=== PATIENT | female | born 1960 | race Caucasian/White ===

== ENCOUNTER 2023-07-12 05:54 | Inpatient (IN) ==
[2023-07-12] MEDS ORDERED: DUONEB NEB ONE ×2 (06:06)
[2023-07-12] MEDS ORDERED: SOLU-MEDROL 125 MG IVP ONE (06:10)
--- NOTE | 2023-07-12 06:11 | ED.PDOC ---
General <VIDA IRBY MD - Last Filed: 07/12/23 06:59> ED Provider: Dr. VIDA IRBY MD Chief Complaint: Shortness of Air Stated Complaint: I can't breathe 62-year-old female presents the ER with shortness of breath. Patient states it got really bad in the last 4 hours. Feels a tightness across her chest. Does not use home oxygen or nebulizers. Has not had fevers. Has had a cough that is productive of thick mucus. No lower extremity swelling. No recent hospitalization or travel. No calf pain. Has a history of COPD. Patient is a smoker. Time Seen by Provider: 07/12/23 06:06 Mode of Arrival: Walk-In Information Source: Patient Primary Care Provider: INOCENCIA ORTIZ MD Nursing and Triage Documentation Reviewed and Agree: Yes Respiratory Complaint Exam <VIDA IRBY MD - Last Filed: 07/12/23 06:59> Shortness of Air Complaint/Exam Onset/Duration: Past couple of days, worse in the last 4 hours Symptoms Are: Still present Timing: Constant Initial Severity: Moderate Current Severity: Severe Character: Reports Dyspnea at rest Aggravating: Reports None Alleviating: Reports None Associated Signs and Symptoms: Reports Cough, Wheezing, Chest pain with cough and Labored breathing History of Healthcare-Acquired Pneumonia: No Pulmonary Embolism Risk Factors: Reports None Cardiac Risk Factors: Reports Smoking and Hypertension Pseudomonas Risk Factors: Reports None Home Oxygen Use: No Recent Stress Test: No Recent Echo/LV Function: No Respiratory Distress: Moderate Stridor Present: No Tracheal Deviation: No Subcutaneous Emphysema: No Accessory Muscle Use: Yes Diminished Breath Sounds: Yes Prolonged Expiratory Phase: Yes Unable to Speak Full Sentences: No Fatigue: Yes Leg Swelling: No Eric's Sign Present: No Grunting Respirations: No Kussmaul Respirations: No Differential Diagnoses: Asthma, CHF, Pulmonary Edema, COPD Exacerbation, Pneumonia, SARS, Bronchitis, Bronchiolitis, RSV and URI Review of Systems <VIDA IRBY MD - Last Filed: 07/12/23 06:59> Review Of Systems Constitutional: Denies Chills Respiratory: Reports Cough, Shortness of Breath and Wheezing Cardiac: Reports Chest pain All Other Systems: Reviewed and Negative PFSH <VIDA IRBY MD - Last Filed: 07/12/23 06:59> Medical History Dyslipidemia E78.5 - Hyperlipidemia, unspecified (ICD-10) COPD (chronic obstructive pulmonary disease) J44.9 - Chronic obstructive pulmonary disease, unspecified (ICD-10) Current smoker F17.200 - Nicotine dependence, unspecified, uncomplicated (ICD-10) HTN, goal below 130/80 I10 - Essential (primary) hypertension (ICD-10) Adhesive capsulitis of left shoulder M75.02 - Adhesive capsulitis of left shoulder (ICD-10) Family History Unknown Cancer Unknown CHF (congestive heart failure) Social History Smoking and tobacco status: Current some day smoker Tobacco: How many years used: 45 Quit status: not considering quitting Alcohol intake: current Alcohol intake frequency: holidays/special occasions only Substance use type: does not use Household members: spouse Marital status: W / Lives independently: Yes Number of children: 1 Current occupational status: employed Current gender identity: female Seatbelt use: always Water heater temperature set < 120 degrees: Yes Working smoke detector in home: Yes Fire extinguisher in home: Yes Carbon monoxide detector in home: Yes Surgical History History of cholecystectomy Z90.49 - Acquired absence of other specified parts of digestive tract (ICD- 10) History of hysterectomy Z90.710 - Acquired absence of both cervix and uterus (ICD-10) Female Reproductive History Menstrual Hx Hysterectomy: Yes Physical Exam <VIDA IRBY MD - Last Filed: 07/12/23 06:59> Physical Exam Ill-appearing: Mild Pain Distress: None Eyes: Reports EOMI ENT: Reports Oropharynx normal Neck: Supple Respiratory: Reports Airway patent, Wheezes and Other (Tripoding) Cardiovascular: Reports RRR GI/: Reports Soft and Nontender Musculoskeletal: Reports No calf tenderness Skin: Reports Warm and Dry Neurological: Reports Cranial nerves intact, Alert and Oriented Psychiatric: Reports Affect appropriate <CHOLO FERNANDO MD - Last Filed: 07/12/23 10:04> Physical Exam Appearance: Reports Ill-appearing, No pain distress and Well-nourished Interpretation <VIDA IRBY MD - Last Filed: 07/12/23 06:59> EKG Interpretation EKG Interpretation By: ED Physician Time of EKG #1: 06:27 Rate: Normal Rhythm: Sinus Ectopy: None [place]: NL ST Segment: Normal Re-Evaluation <VIDA IRBY MD - Last Filed: 07/12/23 06:59> Re-Evaluation Additional Comments: Patient reports that she has been having allergy symptoms for 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 However tonight at work she became nauseated and vomited. After that she has been having a hard time breathing. Denies getting choked up on her emesis. States that while she is a smoker and has a diagnosis of COPD, she does not have inhalers prescribed to her. States that she has never had breathing issues like this before. Reports mild improvement after the nebulized treatment but her sats remain 84% on room air. She is still labored. Critical Care Note <VIDA IRBY MD - Last Filed: 07/12/23 06:59> Critical Care Note Total Critical Care Time (mins): 40 Course <VIDA IRBY MD - Last Filed: 07/12/23 06:59> Course 07/12/23 06:18 07/12/23 06:18 Orders, Labs, Meds: Lab Review 07/12/23 07/12/23 07/12/23 06:10 06:18 06:40 WBC 9.00 RBC 4.02 L Hgb 12.9 Hct 39.1 MCV 97.3 MCH 32.1 H MCHC 33.0 RDW Coeff of Damon 12.9 Plt Count 374 Immature Gran % (Auto) 0.3 Neut % (Auto) 67.4 Lymph % (Auto) 26.0 [place] % (Auto) 5.6 Eos % (Auto) 0.6 Baso % (Auto) 0.1 Neut # (Auto) 6.1 Lymph # (Auto) 2.3 [place] # (Auto) 0.5 Eos # (Auto) 0.1 Baso # (Auto) 0.0 Immature Gran # (Auto) 0.0 Puncture Site Rbrach Base Excess 8.0 H O2 Saturation 94.7 ABG pH 7.50 H ABG pCO2 40.0 ABG pO2 67.0 L ABG HCO3 31.2 H ABG Total CO2 32.4 H Nicho Test Pos Hemoglobin 1.2 Oxyhemoglobin 89.5 L Carboxyhemoglobin 5.6 H Total Hemoglobin 13.2 O2 Delivery Device Cannula Oxygen Liter Flow 2.00 Sodium 139.5 Potassium 3.75 Chloride 104.0 Carbon Dioxide 28.0 Anion Gap 11.25 BUN 27.3 H Creatinine 0.93 Estimated GFR (MDRD) 61.00 BUN/Creatinine Ratio 29.35 Glucose 139.5 H Calcium 9.38 Magnesium 2.19 Total Bilirubin 0.38 AST 25.9 ALT 12.8 Alkaline Phosphatase 78.7 Troponin I < 0.012 NT-Pro-B Natriuret Pep 235 Total Protein 8.02 Albumin 4.46 Globulin 3.56 Albumin/Globulin Ratio 1.25 Procalcitonin < 0.05 D-Dimer 1502.67 H SARS CoV-2 RNA Rapid AJAY Negative Orders Category Date Time Status ABG DRAW REQUEST Stat CARDIO 07/12/23 06:06 Completed BIPAP Routine CARDIO 07/12/23 06:44 Ordered EKG-(ED ONLY) Stat CARDIO 07/12/23 06:06 Completed NEBULIZER TREATMENT Routine CARDIO 07/12/23 06:58 Completed ED IV/MEDIPORT/POWERPORT .ONCE EMERGENCY 07/12/23 06:06 Active ABG COOX Stat LAB 07/12/23 06:10 Completed CBC W/ AUTO DIFF Stat LAB 07/12/23 06:18 Completed COMPREHENSIVE METABOLIC PANEL Stat LAB 07/12/23 06:18 Completed D-DIMER Stat LAB 07/12/23 06:18 Completed ED PROBNP [NT-PROBNP(ED)] Stat LAB 07/12/23 06:18 Completed MAGNESIUM Stat LAB 07/12/23 06:18 Completed PROCALCITONIN Stat LAB 07/12/23 06:18 Completed SARS COV-2 RNA RAPID AJAY Stat LAB 07/12/23 06:40 Completed TROPONIN I Stat LAB 07/12/23 06:18 Completed 0.9 % Sodium Chloride [Saline Flush] Meds 07/12/23 06:06 Active 1 syr IVF PRN PRN Albuterol Sulfate 0.083% Neb [Albuterol 0.083% Neb] Meds 07/12/23 06:58 Discontinued 5 mg NEB ONCE ONE Diphenhydramine Inj [Benadryl] Meds 07/12/23 06:47 Discontinued 50 mg .ROUTE .STK-MED ONE Diphenhydramine Inj [Benadryl] Meds 07/12/23 06:51 Discontinued 50 mg IVP ONCE STA Epinephrine Amp [Epinephrine 1 mg/ml Amp] Meds 07/12/23 06:51 Discontinued 0.3 mg IM ONCE STA Epinephrine Amp [Epinephrine 1 mg/ml Amp] Meds 07/12/23 06:47 Discontinued 1 mg .ROUTE .STK-MED ONE Famotidine Inj [Pepcid] Meds 07/12/23 06:49 Discontinued 20 mg .ROUTE .STK-MED ONE Famotidine Inj [Pepcid] Meds 07/12/23 06:51 Discontinued 20 mg IVP ONCE ONE Ipratropium/Albuterol Neb [Duoneb] Meds 07/12/23 06:06 Discontinued 3 ml NEB ONCE ONE Ipratropium/Albuterol Neb [Duoneb] Meds 07/12/23 06:06 Discontinued 3 ml NEB ONCE ONE Methylprednisolone Sod Succ/Pf [Solu-Medrol 125 mg] Meds 07/12/23 06:10 Discontinued 125 mg IVP ONCE ONE Sodium Chloride 0.9% [Sodium Chloride] 500 ml Meds 07/12/23 06:59 Discontinued IV BOLUS CHEST, 1V AP ONLY Stat RADS 07/12/23 06:06 Completed Medications Generic Name Dose Route Start Last Admin Trade Name Freq PRN Reason Stop Dose Admin Sodium Chloride 1 syr 07/12/23 06:06 0.9% Sodium Chloride 10 Ml Disp.Syrin IVF PRN PRN To flush IV Discontinued Medications Generic Name Dose Route Start Last Admin Trade Name Freq PRN Reason Stop Dose Admin Albuterol Sulfate 5 mg 07/12/23 06:58 07/12/23 07:02 Albuterol Sulfate 0.083% Vial.Neb [facility] 07/12/23 06:59 5 mg ONCE ONE Administration Albuterol/Ipratropium 3 ml 07/12/23 06:06 07/12/23 06:05 Ipratropium/Albuterol Vial.Neb NEB 07/12/23 06:07 3 ml ONCE ONE Administration Albuterol/Ipratropium 3 ml 07/12/23 06:06 07/12/23 06:18 Ipratropium/Albuterol Vial.Neb [facility] 07/12/23 06:07 3 ml ONCE ONE Administration Diphenhydramine HCl 50 mg 07/12/23 06:51 07/12/23 06:55 Diphenhydramine Inj 50 Mg/Ml Vial IVP 07/12/23 06:52 Not Given ONCE STA Epinephrine HCl 0.3 mg 07/12/23 06:51 07/12/23 06:53 Epinephrine 1 Mg/1 Ml Amp IM 07/12/23 06:52 0.3 mg ONCE STA Administration Famotidine 20 mg 07/12/23 06:51 07/12/23 06:54 Famotidine Inj 20 Mg/2 Ml Vial IVP 07/12/23 06:52 Not Given ONCE ONE Sodium Chloride 500 mls @ 500 mls/hr 07/12/23 06:59 07/12/23 08:16 Sodium Chloride IV 07/12/23 07:58 Infused BOLUS STA Infusion Methylprednisolone Sodium Succinate 125 mg 07/12/23 06:10 07/12/23 06:29 Methylprednisolone Sod Succ/Pf 125 Mg/2 Ml Vial IVP 07/12/23 06:11 125 mg ONCE ONE Administration 6:43 AM Patient reports feeling very itchy, starting to turn red. States that her tongue is no longer numb and does not feel swollen. Suspect allergic reaction. Patient states she believes she has had breathing treatment before so unclear what she is reacting to. 0.3 mg of epi, 50 mg of Benadryl, 20 mg of Pepcid given. 6:53 AM Patient reassessed and states that she does feel like she is able to take deeper breaths. Is settling down more than 10 minutes ago. 99% on nonrebreather right now. Will have respiratory apply BiPAP. Labs are returned. Cardiac biomarkers are unremarkable. Chest x-ray interpreted by me independent of radiology review does not show any acute pneumothorax, fluid collection, consolidation, cardiomegaly. 6:54 AM Uncertain if this is allergic reaction mediated or viral. Patient could have had a viral illness and then was reacting to the breathing treatment. We will continue to monitor. Anticipate the need for admission to the hospital. Vital Signs: Temp Pulse Resp BP Pulse Ox 07/12/23 07:07 96 07/12/23 06:00 98.0 F 90 24 H 150/74 H 87 L <CHOLO FERNANDO MD - Last Filed: 07/12/23 10:04> Course Orders, Labs, Meds: Lab Review 07/12/23 07/12/23 07/12/23 06:10 06:18 06:40 WBC 9.00 RBC 4.02 L Hgb 12.9 Hct 39.1 MCV 97.3 MCH 32.1 H MCHC 33.0 RDW Coeff of Damon 12.9 Plt Count 374 Immature Gran % (Auto) 0.3 Neut % (Auto) 67.4 Lymph % (Auto) 26.0 [place] % (Auto) 5.6 Eos % (Auto) 0.6 Baso % (Auto) 0.1 Neut # (Auto) 6.1 Lymph # (Auto) 2.3 [place] # (Auto) 0.5 Eos # (Auto) 0.1 Baso # (Auto) 0.0 Immature Gran # (Auto) 0.0 Puncture Site Rbrach Base Excess 8.0 H O2 Saturation 94.7 ABG pH 7.50 H ABG pCO2 40.0 ABG pO2 67.0 L ABG HCO3 31.2 H ABG Total CO2 32.4 H Nicho Test Pos Hemoglobin 1.2 Oxyhemoglobin 89.5 L Carboxyhemoglobin 5.6 H Total Hemoglobin 13.2 O2 Delivery Device Cannula Oxygen Liter Flow 2.00 Sodium 139.5 Potassium 3.75 Chloride 104.0 Carbon Dioxide 28.0 Anion Gap 11.25 BUN 27.3 H Creatinine 0.93 Estimated GFR (MDRD) 61.00 BUN/Creatinine Ratio 29.35 Glucose 139.5 H Calcium 9.38 Magnesium 2.19 Total Bilirubin 0.38 AST 25.9 ALT 12.8 Alkaline Phosphatase 78.7 Troponin I < 0.012 NT-Pro-B Natriuret Pep 235 Total Protein 8.02 Albumin 4.46 Globulin 3.56 Albumin/Globulin Ratio 1.25 Procalcitonin < 0.05 D-Dimer 1502.67 H SARS CoV-2 RNA Rapid AJAY Negative Orders Category Date Time Status ABG DRAW REQUEST Stat CARDIO 07/12/23 06:06 Completed BIPAP Routine CARDIO 07/12/23 06:44 Ordered EKG-(ED ONLY) Stat CARDIO 07/12/23 06:06 Completed NEBULIZER TREATMENT Routine CARDIO 07/12/23 06:58 Completed ED IV/MEDIPORT/POWERPORT .ONCE EMERGENCY 07/12/23 06:06 Active ABG COOX Stat LAB 07/12/23 06:10 Completed CBC W/ AUTO DIFF Stat LAB 07/12/23 06:18 Completed COMPREHENSIVE METABOLIC PANEL Stat LAB 07/12/23 06:18 Completed D-DIMER Stat LAB 07/12/23 06:18 Completed ED PROBNP [NT-PROBNP(ED)] Stat LAB 07/12/23 06:18 Completed MAGNESIUM Stat LAB 07/12/23 06:18 Completed PROCALCITONIN Stat LAB 07/12/23 06:18 Completed SARS COV-2 RNA RAPID AJAY Stat LAB 07/12/23 06:40 Completed TROPONIN I Stat LAB 07/12/23 06:18 Completed 0.9 % Sodium Chloride [Saline Flush] Meds 07/12/23 06:06 Active 1 syr IVF PRN PRN Albuterol Sulfate 0.083% Neb [Albuterol 0.083% Neb] Meds 07/12/23 06:58 Discontinued 5 mg NEB ONCE ONE Diphenhydramine Inj [Benadryl] Meds 07/12/23 06:47 Discontinued 50 mg .ROUTE .STK-MED ONE Diphenhydramine Inj [Benadryl] Meds 07/12/23 06:51 Discontinued 50 mg IVP ONCE STA Epinephrine Amp [Epinephrine 1 mg/ml Amp] Meds 07/12/23 06:51 Discontinued 0.3 mg IM ONCE STA Epinephrine Amp [Epinephrine 1 mg/ml Amp] Meds 07/12/23 06:47 Discontinued 1 mg .ROUTE .STK-MED ONE Famotidine Inj [Pepcid] Meds 07/12/23 06:49 Discontinued 20 mg .ROUTE .STK-MED ONE Famotidine Inj [Pepcid] Meds 07/12/23 06:51 Discontinued 20 mg IVP ONCE ONE Ipratropium/Albuterol Neb [Duoneb] Meds 07/12/23 06:06 Discontinued 3 ml NEB ONCE ONE Ipratropium/Albuterol Neb [Duoneb] Meds 07/12/23 06:06 Discontinued 3 ml NEB ONCE ONE Methylprednisolone Sod Succ/Pf [Solu-Medrol 125 mg] Meds 07/12/23 06:10 Discontinued 125 mg IVP ONCE ONE Sodium Chloride 0.9% [Sodium Chloride] 500 ml Meds 07/12/23 06:59 Discontinued IV BOLUS CHEST, 1V AP ONLY Stat RADS 07/12/23 06:06 Completed Medications Generic Name Dose Route Start Last Admin Trade Name Freq PRN Reason Stop Dose Admin Sodium Chloride 1 syr 07/12/23 06:06 0.9% Sodium Chloride 10 Ml Disp.Syrin IVF PRN PRN To flush IV Discontinued Medications Generic Name Dose Route Start Last Admin Trade Name [place] PRN Reason Stop Dose Admin Albuterol Sulfate 5 mg 07/12/23 06:58 07/12/23 07:02 Albuterol Sulfate 0.083% Vial.[facility] 07/12/23 06:59 5 mg ONCE ONE Administration Albuterol/Ipratropium 3 ml 07/12/23 06:06 07/12/23 06:05 Ipratropium/Albuterol Vial.[facility] 07/12/23 06:07 3 ml ONCE ONE Administration Albuterol/Ipratropium 3 ml 07/12/23 06:06 07/12/23 06:18 Ipratropium/Albuterol Vial.[facility] 07/12/23 06:07 3 ml ONCE ONE Administration Diphenhydramine HCl 50 mg 07/12/23 06:51 07/12/23 06:55 Diphenhydramine Inj 50 Mg/Ml Vial IVP 07/12/23 06:52 Not Given ONCE STA Epinephrine HCl 0.3 mg 07/12/23 06:51 07/12/23 06:53 Epinephrine 1 Mg/1 Ml Amp IM 07/12/23 06:52 0.3 mg ONCE STA Administration Famotidine 20 mg 07/12/23 06:51 07/12/23 06:54 Famotidine Inj 20 Mg/2 Ml Vial IVP 07/12/23 06:52 Not Given ONCE ONE Sodium Chloride 500 mls @ 500 mls/hr 07/12/23 06:59 07/12/23 08:16 Sodium Chloride IV 07/12/23 07:58 Infused BOLUS STA Infusion Methylprednisolone Sodium Succinate 125 mg 07/12/23 06:10 07/12/23 06:29 Methylprednisolone Sod Succ/Pf 125 Mg/2 Ml Vial IVP 07/12/23 06:11 125 mg ONCE ONE Administration Vital Signs: Temp Pulse Resp BP Pulse Ox 07/12/23 07:07 96 07/12/23 06:00 98.0 F 90 24 H 150/74 H 87 L Time is 0836 hr. D-Dimer is positive. CTA of chest ordered. Discussed with patient and she's ok with staying here. Resting fairly comfortably time 1002 hr. Cj called back and all info given to him. He agreed to admit to hospitalist but will see her also. Lanette called and admit to OBS Discharge Plan Discharge Patient Disposition: PLACED OBSERVATION Discharge Problem: Acute respiratory failure Did you review [place] for ALL controlled substances?: Not Applicable ED Provider: CHOLO FERNANDO Condition: Fair <VIDA IRBY MD - Last Filed: 07/12/23 06:59> Physician Progress Note: [] <CHOLO FERNANDO MD - Last Filed: 07/12/23 10:04> Physician Progress Note: Patient seen and labs reviewed. Discussed transfer of care from Vida Irby earlier. Paged her attending and left a message on his cell phone. Hospitalist did accept as per RN from call to hospitalist from Vida Irby. []
[2023-07-12 06:24] LABS: BASOPHILS % (AUTO) 0.1 % (0.0-3.0); EOSINOPHILS # (AUTO) 0.1 K/ul (0.0-0.7); EOSINOPHILS % (AUTO) 0.6 % (0.0-7.0); HEMATOCRIT 39.1 % (37.0-47.0); HEMOGLOBIN 12.9 g/dl (12.0-16.0); IMMATURE GRANULOCYTE % (AUTO) 0.3 % (0.0-5.0); LYMPHOCYTES # (AUTO) 2.3 K/uL (0.60-3.4); MEAN CORPUSCULAR HEMOGLOBIN 32.1 pg (27.0-31.0); MEAN CORPUSCULAR VOLUME 97.3 fl (81.0-99.0); MONOCYTES # (AUTO) 0.5 K/uL (0.4-2.0); MONOCYTES % (AUTO) 5.6 (0-10); NEUTROPHILS # (AUTO) 6.1 K/ul (2.0-6.9); NEUTROPHILS % (AUTO) 67.4 % (42.2-75.2); PLATELET COUNT 374 10^3/uL (140-440); RDW COEFFICIENT OF VARIATION 12.9 % (11.6-14.8); RED BLOOD COUNT 4.02 10^6/ul (4.20-5.40)
[2023-07-12 06:26] LABS: ABG O2 HGB 89.5 % (95-100); COHb 5.6 (0.5-1.5); HCO3 31.2 (21-28); MetHb 1.2 (0-1.5); TCO2 32.4 (19-24); sO2 94.7 % (94-98); tHb 13.2 g/dl (11.7-17.4)
[2023-07-12 06:37] LABS: ALANINE AMINOTRANSFERASE 12.8 U/L (0-35); ALBUMIN 4.46 g/dL (3.5-5.0); ALKALINE PHOSPHATASE 78.7 U/L (53-141); ASPARTATE AMINO TRANSFERASE 25.9 U/L (14-36); BILIRUBIN,TOTAL 0.38 mg/dL (0.2-1.3); BLOOD UREA NITROGEN 27.3 mg/dL (7-17); CALCIUM 9.38 mg/dL (8.4-10.2); CREATININE 0.93 mg/dL (0.60-1.30); GLUCOSE 139.5 mg/dL (74-106); POTASSIUM 3.75 mmol/L (3.5-5.1); SODIUM 139.5 mmol/L (134.5-145); TOTAL PROTEIN 8.02 g/dL (6.3-8.2)
[2023-07-12] MEDS ORDERED: BENADRYL ONE (06:47)
[2023-07-12] MEDS ORDERED: EPINEPHRINE 1 MG/ML AMP ONE (06:47)
[2023-07-12 06:49] LABS: TROPONIN I < 0.012 ng/ml (0.0000-0.120)
[2023-07-12] MEDS ORDERED: PEPCID ONE (06:49)
[2023-07-12] MEDS ORDERED: EPINEPHRINE 1 MG/ML AMP IM STA (06:51)
[2023-07-12] MEDS ORDERED: PEPCID IVP ONE (06:51)
[2023-07-12] MEDS ORDERED: BENADRYL IVP STA (06:51)
--- NOTE | 2023-07-12 06:52 | DI ---
EXAM: CHEST RADIOGRAPH TECHNIQUE: Single frontal chest radiograph. HISTORY: Shortness of breath. COMPARISON: 07/19/2016 FINDINGS: EKG leads and oxygen tubing project over the chest. No pulmonary infiltrate is identified. No pleural effusion or pneumothorax is seen. Borderline cardiomegaly. No acute displaced rib fractures are identified. IMPRESSION: 1. No acute findings in the chest.
[2023-07-12 06:58] LABS: SARS COV-2 RNA RAPID NAAT NEGATIVE (NEGATIVE)
[2023-07-12] MEDS ORDERED: ALBUTEROL 0.083% NEB NEB ONE (06:58)
[2023-07-12] MEDS ORDERED: SODIUM CHLORIDE 500 ML IV STA (06:59)
--- NOTE | 2023-07-12 09:49 | CT ---
EXAM: CTA CHEST FOR PE HISTORY: Acute dyspnea COMPARISON: None TECHNIQUE: CTA of the chest was performed from the lung apices to the upper abdomen after 100 ml of Omnipaque IV contrast was administered using PE protocol. 3-D imaging was also provided. FINDINGS: There is no filling defect in the pulmonary arteries to the level of the subsegmental pulm onary arteries. The heart is normal without signs of ventricular strain. There is mild calcific ath erosclerotic disease. There is no pericardial fluid. There are nonenlarged mediastinal and hilar ly mph nodes. Thyroid is normal. There is no pneumothorax or effusion. There is calcified granuloma in the superior segment of the ri ght lower lobe. There is a right apical nodule measuring 0.5 cm. The airways are patent. Limited views of the soft tissues in the upper abdomen are normal. Gallbladder is been resected. Th ere is a right renal cyst present. The osseous structures demonstrate degenerative disease. IMPRESSION: 1. No acute cardiopulmonary process or consolidation. 2. Pleural-based 0.5 cm nodule in the posterior right lung apex. Follow-up CT in 6 months. 3. Cholecystectomy and right renal cyst. All CT scans are performed using dose optimization techniques as appropriate to the performed exam an d include at least one of the following: Automated exposure control, adjustment of the mA and/or kV according t o size, and the use of iterative reconstruction technique.
[2023-07-12 11:10] VITALS: BMI 30.9
--- NOTE | 2023-07-12 11:22 | PCM ---
Date of Service Date Seen by Provider: 07/12/23 Time Seen by Provider: 11:45 Admit Day/Time Admission Date: 07/12/23 Admission Time: 11:40 Reason for Admission Chief Complaint: COPD EXACERBATION Hospital Provider Hospital Provider: LESLEY EDUARDO PA-C, [facility] [place] Primary Care Physician Primary Care Physician: INOCENCIA CORONA MD History of Present Illness History of Present Illness: Patient is a 62 year old female with pmhx of hypertension who presented to ER with sob. 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 Then she felt significant SOB to where she couldn't walk a few steps. She states she has had URI symptoms for last couple weeks. No formal diagnosis of COPD. Doesn't use inhalers at home. She is a long time smoker. In ER she was found to be hypoxic 84-87%. She was given duonebs. She became very red, tongue went numb, then became itchy. Her breathing became labored. She was placed on bipap to help with her work of breathing. They tried just an albuterol neb but she had the same reaction. She was given epi, solumedrol, pepcid, and benadryl. She is now off bipap, only on 2L, and breathing is nonlabored/much improved. Case Discussed With Case Discussed With: Patient's case was discussed with the ER Physicians, Dr. Bains and Dr. Mcgovern. [facility] Medical History Dyslipidemia E78.5 - Hyperlipidemia, unspecified (ICD-10) COPD (chronic obstructive pulmonary disease) J44.9 - Chronic obstructive pulmonary disease, unspecified (ICD-10) Current smoker F17.200 - Nicotine dependence, unspecified, uncomplicated (ICD-10) HTN, goal below 130/80 I10 - Essential (primary) hypertension (ICD-10) Adhesive capsulitis of left shoulder M75.02 - Adhesive capsulitis of left shoulder (ICD-10) Surgical History History of cholecystectomy Z90.49 - Acquired absence of other specified parts of digestive tract (ICD- 10) History of hysterectomy Z90.710 - Acquired absence of both cervix and uterus (ICD-10) Family History Unknown Cancer Unknown CHF (congestive heart failure) Mother Cancer Mother Heart disease FATHER Heart disease Diabetes BROTHER Diabetes AMI (acute myocardial infarction) CVA (cerebral vascular accident) BROTHER Hypertension Hx of CABG SISTER Hypertension Social History Smoking and tobacco status: Current some day smoker Tobacco: How many years used: 45 Quit status: not considering quitting Alcohol intake: current Alcohol intake frequency: holidays/special occasions only Substance use type: does not use Household members: spouse Marital status: W / Lives independently: Yes Number of children: 1 Current occupational status: employed Current gender identity: female Seatbelt use: always Water heater temperature set < 120 degrees: Yes Working smoke detector in home: Yes Fire extinguisher in home: Yes Carbon monoxide detector in home: Yes Allergies Allergies Allergy/AdvReac Type Severity Reaction Status Date / Time No Known Allergies Allergy Verified 07/12/23 06:26 Current Medications Home Medications amlodipine 5 mg tablet (Norvasc) 5 mg PO BID #180 tabs 01/13/23 [Rx Confirmed 07/12/23 Last Taken 07/11/23 08:00 10 mg] cholecalciferol (vitamin D3) 25 mcg (1,000 unit) capsule 25 mcg PO QDAY 01/13/23 [History Confirmed 07/12/23 Last Taken 07/11/23 08:00 25 mcg] escitalopram oxalate 20 mg tablet 20 mg PO QDAY #90 tabs 01/13/23 [Rx Confirmed 07/12/23 Last Taken 07/11/23 08:00 20 mg] magnesium oxide 500 mg tablet 500 mg PO QDAY #90 tabs 01/13/23 [Rx Confirmed 07/12/23 Last Taken 06/27/23 11:00 500 mg] metoprolol tartrate 50 mg tablet 50 mg PO QDAY #90 tabs 02/08/23 [Rx Confirmed 07/12/23 Last Taken 07/11/23 08:00 50 mg] Home Acetaminophen (Acetaminophen 325 Mg Tablet) 650 mg PO Q4H PRN PRN Reason: Mild Pain Amlodipine Besylate (Amlodipine Besylate 5 Mg Tablet) 5 mg PO BID PATTI Last Admin: 07/12/23 13:05 Dose: 5 mg Diphenhydramine HCl (Diphenhydramine Hcl 25 Mg Capsule) 25 mg PO Q6H PRN PRN Reason: Allergy Symptoms Enoxaparin Sodium (Enoxaparin Sodium 40 Mg/0.4 Ml Syr) 40 mg SUBCUT DAILY [facility] Escitalopram Oxalate (Escitalopram Oxalate 10 Mg Tablet) 20 mg PO DAILY [facility] Last Admin: 07/12/23 13:05 Dose: 20 mg Famotidine (Famotidine Inj 20 Mg/2 Ml Vial) 20 mg IVP Q12HR [facility] Doxycycline Hyclate 100 mg/ (Sodium Chloride) 100 mls @ 50 mls/hr IV Q12HR [facility] Stop: 07/15/23 11:59 Last Admin: 07/12/23 12:53 Dose: 50 mls/hr Methylprednisolone Sodium Succinate (Methylprednisolone Sod Succ/Pf 40 Mg/Ml Vial) 40 mg IVP Q8HR [facility] Last Admin: 07/12/23 12:56 Dose: 40 mg Metoprolol Tartrate (Metoprolol Tartrate 50 Mg Tablet) 50 mg PO DAILY [facility] Last Admin: 07/12/23 13:06 Dose: 50 mg Sodium Chloride (0.9% Sodium Chloride 10 Ml Disp.Syrin) 1 syr IVF PRN PRN PRN Reason: To flush IV Last Admin: 07/12/23 12:57 Dose: 1 syr Discontinued Medications Albuterol Sulfate (Albuterol Sulfate 0.083% Vial.Neb) 5 mg NEB ONCE ONE Stop: 07/12/23 06:59 Last Admin: 07/12/23 07:02 Dose: 5 mg Albuterol/Ipratropium (Ipratropium/Albuterol Vial.Neb) 3 ml NEB ONCE ONE Stop: 07/12/23 06:07 Last Admin: 07/12/23 06:05 Dose: 3 ml Albuterol/Ipratropium (Ipratropium/Albuterol Vial.Neb) 3 ml NEB ONCE ONE Stop: 07/12/23 06:07 Last Admin: 07/12/23 06:18 Dose: 3 ml Diphenhydramine HCl (Diphenhydramine Inj 50 Mg/Ml Vial) 50 mg IVP ONCE STA Stop: 07/12/23 06:52 Last Admin: 07/12/23 06:55 Dose: Not Given Epinephrine HCl (Epinephrine 1 Mg/1 Ml Amp) 0.3 mg IM ONCE STA Stop: 07/12/23 06:52 Last Admin: 07/12/23 06:53 Dose: 0.3 mg Famotidine (Famotidine Inj 20 Mg/2 Ml Vial) 20 mg IVP ONCE ONE Stop: 07/12/23 06:52 Last Admin: 07/12/23 06:54 Dose: Not Given Sodium Chloride (Sodium Chloride) 500 mls @ 500 mls/hr IV BOLUS STA Stop: 07/12/23 07:58 Last Infusion: 07/12/23 08:16 Dose: Infused Methylprednisolone Sodium Succinate (Methylprednisolone Sod Succ/Pf 125 Mg/2 Ml Vial) 125 mg IVP ONCE ONE Stop: 07/12/23 06:11 Last Admin: 07/12/23 06:29 Dose: 125 mg Review of Systems Constitutional: Denies Fever, Fatigue or Weakness Head: Reports Normocephalic and Atraumatic Cardiovascular: Denies Chest pain or Chest Pressure Respiratory: Reports Cough, Shortness of air and Wheeze Gastrointestinal: Reports Nausea, Vomiting and Diarrhea; Denies Abdominal pain Dermatologic: Denies Rashes Neurological: Reports Numbness (of tongue, resolved ); Denies Weakness Physical examination Most Recent Vital Signs: Most Recent Vital Signs Temperature 98.4 F 07/12/23 10:40 Temperature Source Oral 07/12/23 10:40 Temperature Source Oral 07/12/23 06:00 Pulse Rate 75 07/12/23 10:40 Respiratory Rate 16 07/12/23 10:40 Blood Pressure 150/74 H 07/12/23 06:00 Blood Pressure Left Arm 148/87 07/12/23 10:40 Blood Pressure Position Sitting 07/12/23 10:40 O2 Sat by Pulse Oximetry 94 L 07/12/23 10:40 Oxygen Delivery Method Nasal Cannula 07/12/23 10:40 Oxygen Flow Rate 2 07/12/23 10:40 Fraction of Inspired Oxygen (FIO2) 30 07/12/23 07:07 Height 5 ft 7 in 07/12/23 10:40 Weight 197 lb 8 oz 07/12/23 10:40 Appearance: Positive Well-appearing, Well-nourished, No Apparent Distress and Alert and Oriented x3 Skin: Positive [place], Warm and Good Turgor; Negative Rashes HEENT: Positive Normocephalic and Atraumatic Neck: Positive Supple and Midline Trachea Chest/Lungs: Positive Wheezes (+mild wheezing bilaterally, improved ) Heart: Positive RRR GI/: Positive Soft, Nontender, Bowel Sounds Normal and No Distention Extremities: Negative Edema Neurological: Positive Cranial Nerves Intact, Alert, Oriented and Muscle Strength 5/5 in Upper and Lower Extremities Bilaterally Psychiatric: Positive Oriented x4, Appropriate Mood and Appropriate Affect Labs This Visit Labs This Visit: Labs This Visit 07/12/23 07/12/23 07/12/23 06:10 06:18 06:40 WBC 9.00 RBC 4.02 L Hgb 12.9 Hct 39.1 MCV 97.3 MCH 32.1 H MCHC 33.0 RDW Coeff of Damon 12.9 Plt Count 374 Immature Gran % (Auto) 0.3 Neut % (Auto) 67.4 Lymph % (Auto) 26.0 [place] % (Auto) 5.6 Eos % (Auto) 0.6 Baso % (Auto) 0.1 Neut # (Auto) 6.1 Lymph # (Auto) 2.3 [place] # (Auto) 0.5 Eos # (Auto) 0.1 Baso # (Auto) 0.0 Immature Gran # (Auto) 0.0 Puncture Site Rbrach Base Excess 8.0 H O2 Saturation 94.7 ABG pH 7.50 H ABG pCO2 40.0 ABG pO2 67.0 L ABG HCO3 31.2 H ABG Total CO2 32.4 H Nicho Test Pos Hemoglobin 1.2 Oxyhemoglobin 89.5 L Carboxyhemoglobin 5.6 H Total Hemoglobin 13.2 O2 Delivery Device Cannula Oxygen Liter Flow 2.00 Sodium 139.5 Potassium 3.75 Chloride 104.0 Carbon Dioxide 28.0 Anion Gap 11.25 BUN 27.3 H Creatinine 0.93 Estimated GFR (MDRD) 61.00 BUN/Creatinine Ratio 29.35 Glucose 139.5 H Calcium 9.38 Magnesium 2.19 Total Bilirubin 0.38 AST 25.9 ALT 12.8 Alkaline Phosphatase 78.7 Troponin I < 0.012 NT-Pro-B Natriuret Pep 235 Total Protein 8.02 Albumin 4.46 Globulin 3.56 Albumin/Globulin Ratio 1.25 Procalcitonin < 0.05 D-Dimer 1502.67 H SARS CoV-2 RNA Rapid AJAY Negative Imaging Imaging: EXAM: CHEST RADIOGRAPH TECHNIQUE: Single frontal chest radiograph. HISTORY: Shortness of breath. COMPARISON: 07/19/2016 FINDINGS: EKG leads and oxygen tubing project over the chest. No pulmonary infiltrate is identified. No pleural effusion or pneumothorax is seen. Borderline cardiomegaly. No acute displaced rib fractures are identified. IMPRESSION: 1. No acute findings in the chest. EXAM: CTA CHEST FOR PE HISTORY: Acute dyspnea COMPARISON: None TECHNIQUE: CTA of the chest was performed from the lung apices to the upper abdomen after 100 ml of Omnipaque IV contrast was administered using PE protocol. 3-D imaging was also provided. FINDINGS: There is no filling defect in the pulmonary arteries to the level of the subsegmental pulmonary arteries. The heart is normal without signs of ventricular strain. There is mild calcific atherosclerotic disease. There is no pericardial fluid. There are nonenlarged mediastinal and hilar lymph nodes. Thyroid is normal. There is no pneumothorax or effusion. There is calcified granuloma in the superior segment of the right lower lobe. There is a right apical nodule measuring 0.5 cm. The airways are patent. Limited views of the soft tissues in the upper abdomen are normal. Gallbladder is been resected. There is a right renal cyst present. The osseous structures demonstrate degenerative disease. IMPRESSION: 1. No acute cardiopulmonary process or consolidation. 2. Pleural-based 0.5 cm nodule in the posterior right lung apex. Follow-up CT in 6 months. 3. Cholecystectomy and right renal cyst. Review Statement Review Statement: I have independently reviewed and interpreted the labs/EKGs/imaging that were ordered by the ER provider. I have reviewed all outside records that are available currently in our EMR including imaging/notes/labs from previous visits. Plan Plan: 1. Acute hypoxic respiratory failure - Improved. Off of bipap. Wean O2 when able. Solumedrol, pepcid, doxycycline. Will avoid nebs for now since she seems to have had a reaction in ER. Benadryl prn ordered. 2. Acute COPD exacerbation - Plan as above. Consider outpatient PFTs for formal diagnosis. Chronic smoker. 3. Hypertension - Chronic, stable DVT Prophylaxis: Lovenox Time Spent: Greater than 80 minutes spent with patient, 50% of the time spent with this patient was devoted to counseling and coordination of care. Advanced Care Planning: FULL CODE minutes spent discussing advance care planning. Smoking Cessation: 3 minutes spent discussing smoking cessation. Admit to: Inpatient Discussed Plan of Care with Dr. Radha Corona. Medications Medication Orders: Medications Ordered Category Date Time Status 0.9 % Sodium Chloride [Saline Flush] Meds 07/12/23 06:06 Active 1 syr IVF PRN PRN
[2023-07-12] MEDS ORDERED: BENADRYL PO PRN (11:54)
[2023-07-12] MEDS ORDERED: TYLENOL PO PRN (11:54)
[2023-07-12] MEDS: DOXY-100 100 MG in SODIUM CHLORIDE 100ML 100 ML IV SCH ×2 (12:53→20:26)
[2023-07-12] MEDS: SOLU-MEDROL 40 MG IVP SCH ×2 (12:56→20:25)
[2023-07-12] MEDS: NORVASC PO SCH ×2 (13:05→20:25)
[2023-07-12] MEDS: LEXAPRO PO SCH (13:05)
[2023-07-12] MEDS: LOPRESSOR PO SCH (13:06)
[2023-07-12] MEDS: PEPCID IVP SCH (20:25)
[2023-07-13 05:20] LABS: BASOPHILS % (AUTO) 0.1 % (0.0-3.0); HEMOGLOBIN 11.2 g/dl (12.0-16.0); IMMATURE GRANULOCYTE # (AUTO) 0.2 (0.0-1.0); IMMATURE GRANULOCYTE % (AUTO) 1.1 % (0.0-5.0); LYMPHOCYTES # (AUTO) 0.7 K/uL (0.60-3.4); LYMPHOCYTES % (AUTO) 5.4 (10.0-50.0); MEAN CORPUSCULAR HEMOGLOBIN 32.3 pg (27.0-31.0); MEAN CORPUSCULAR HGB CONC 32.9 (31.8-35.4); MONOCYTES # (AUTO) 0.2 K/uL (0.4-2.0); MONOCYTES % (AUTO) 1.4 (0-10); NEUTROPHILS # (AUTO) 12.5 K/ul (2.0-6.9); PLATELET COUNT 290 10^3/uL (140-440); RED BLOOD COUNT 3.47 10^6/ul (4.20-5.40); WHITE BLOOD COUNT 13.54 K/ul (4.6-10.2)
[2023-07-13 05:35] LABS: ALANINE AMINOTRANSFERASE 11.3 U/L (0-35); ALBUMIN 3.83 g/dL (3.5-5.0); ALKALINE PHOSPHATASE 59.4 U/L (53-141); ASPARTATE AMINO TRANSFERASE 19.7 U/L (14-36); BILIRUBIN,TOTAL 0.21 mg/dL (0.2-1.3); BLOOD UREA NITROGEN 19.6 mg/dL (7-17); CALCIUM 9.21 mg/dL (8.4-10.2); CARBON DIOXIDE 27.5 mmol/L (22-30.0); CHLORIDE 107.6 mmol/L (98-107); CREATININE 0.72 mg/dL (0.60-1.30); GLUCOSE 133.5 mg/dL (74-106); POTASSIUM 3.98 mmol/L (3.5-5.1); SODIUM 138.1 mmol/L (134.5-145); TOTAL PROTEIN 6.83 g/dL (6.3-8.2)
[2023-07-13] MEDS: SOLU-MEDROL 40 MG IVP SCH ×3 (05:37→20:16)
[2023-07-13] MEDS: PEPCID IVP SCH ×2 (08:56→20:16)
[2023-07-13] MEDS: NORVASC PO SCH ×2 (08:56→20:12)
[2023-07-13] MEDS: LEXAPRO PO SCH (08:56)
[2023-07-13] MEDS: LOPRESSOR PO SCH (08:56)
[2023-07-13] MEDS: DOXY-100 100 MG in SODIUM CHLORIDE 100ML 100 ML IV SCH ×2 (08:56→20:13)
[2023-07-13] MEDS: LOVENOX SUBCUT SCH (08:57)
--- NOTE | 2023-07-13 09:14 | PCM.PROG ---
Date/Time Seen Date Seen by Provider: 07/13/23 Time Seen by Provider: 08:30 Provider [facility] Chief Complaint Chief Complaint: COPD EXACERBATION Subjective Subjective: Patient feeling better. On 2L through the night. Has a cough and still has some wheezing. Has not had any other symptoms of tongue numbness, itching, redness, etc. Objective Appearance: Positive Well-appearing, Well-nourished, No Apparent Distress and Alert and Oriented x3 Chest/Lungs: Positive Symmetrical With Equal Breath Sounds, Rhonci and Wheezes Heart: Positive RRR GI/: Positive Soft, Nontender and Bowel Sounds Normal Neurological: Positive Cranial Nerves Intact, Alert, Oriented and Muscle Strength 5/5 in Upper and Lower Extremities Bilaterally Vital Signs Vital Signs: Vital Signs: Last 24 Hours 07/12/23 10:25 07/12/23 10:40 07/12/23 10:40 Temperature 98.4 F Temperature Source Oral Pulse Rate 75 Respiratory Rate 16 16 Blood Pressure Blood Pressure Mean Blood Pressure Left Arm 148/87 Blood Pressure Location Blood Pressure Position Sitting O2 Sat by Pulse Oximetry 94 L Oxygen Delivery Method Nasal Cannula Nasal Cannula Oxygen Flow Rate 2 2 Height 5 ft 7 in Weight 197 lb 8 oz Telemetry Type Remote Telemetry Telemetry Monitoring Started Telemetry Heart Rate 70 Telemetry SPO2 94 EKG NH Interval 0.19 EKG QRS Interval 0.09 Telemetry Strip Reading NSR 07/12/23 11:00 07/12/23 12:28 07/12/23 13:00 Temperature Temperature Source Pulse Rate Respiratory Rate Blood Pressure Blood Pressure Mean Blood Pressure Left Arm Blood Pressure Location Blood Pressure Position O2 Sat by Pulse Oximetry Oxygen Delivery Method Nasal Cannula Nasal Cannula Oxygen Flow Rate Height Weight Telemetry Type Remote Telemetry Telemetry Monitoring Continues Telemetry Heart Rate 68 Telemetry SPO2 93 EKG NH Interval 0.20 EKG QRS Interval 0.08 Telemetry Strip Reading NSR 07/12/23 14:00 07/12/23 14:00 07/12/23 15:21 Temperature 97.7 F Temperature Source Oral Pulse Rate 65 Respiratory Rate 14 Blood Pressure 132/72 Blood Pressure Mean 92 Blood Pressure Left Arm Blood Pressure Location Left Arm Blood Pressure Position Supine O2 Sat by Pulse Oximetry 95 87 L 94 L Oxygen Delivery Method Nasal Cannula Nasal Cannula Nasal Cannula Oxygen Flow Rate 1 1 2 Height Weight Telemetry Type Telemetry Monitoring Telemetry Heart Rate Telemetry SPO2 EKG NH Interval EKG QRS Interval Telemetry Strip Reading 07/12/23 18:00 07/12/23 19:00 07/12/23 19:44 Temperature 97.4 F L Temperature Source Temporal Artery Scan Pulse Rate 58 L Respiratory Rate 20 16 Blood Pressure 134/77 Blood Pressure Mean 96 Blood Pressure Left Arm Blood Pressure Location Left Arm Blood Pressure Position Supine O2 Sat by Pulse Oximetry 95 Oxygen Delivery Method Nasal Cannula Nasal Cannula Oxygen Flow Rate 2 2 Height Weight Telemetry Type Remote Telemetry Telemetry Monitoring Continues Telemetry Heart Rate 55 L Telemetry SPO2 94 EKG NH Interval 0.18 EKG QRS Interval 0.06 Telemetry Strip Reading SB 07/12/23 20:00 07/12/23 20:56 07/13/23 01:00 Temperature 97.3 F L Temperature Source Temporal Artery Scan Pulse Rate 56 L Respiratory Rate 18 Blood Pressure 131/81 Blood Pressure Mean 97 Blood Pressure Left Arm Blood Pressure Location Right Arm Blood Pressure Position Supine O2 Sat by Pulse Oximetry 95 97 Oxygen Delivery Method Nasal Cannula Nasal Cannula Oxygen Flow Rate 2 2 Height Weight Telemetry Type Remote Telemetry Telemetry Monitoring Continues Telemetry Heart Rate 73 Telemetry SPO2 EKG NH Interval 0.17 EKG QRS Interval 0.05 L Telemetry Strip Reading SR 07/13/23 04:53 07/13/23 05:36 07/13/23 07:00 Temperature 98.0 F Temperature Source Oral Pulse Rate 54 L Respiratory Rate 18 Blood Pressure 141/72 H Blood Pressure Mean 95 Blood Pressure Left Arm Blood Pressure Location Right Arm Blood Pressure Position Supine O2 Sat by Pulse Oximetry 93 L 95 Oxygen Delivery Method Nasal Cannula Nasal Cannula Oxygen Flow Rate 2 Height Weight Telemetry Type Remote Telemetry Telemetry Monitoring Continues Telemetry Heart Rate 53 L Telemetry SPO2 EKG NH Interval 0.16 EKG QRS Interval 0.07 Telemetry Strip Reading SB Lab Results Lab Results: Lab Results: Last 24 Hours 07/13/23 05:07 WBC 13.54 H RBC 3.47 L Hgb 11.2 L Hct 34.0 L MCV 98.0 MCH 32.3 H MCHC 32.9 RDW Coeff of Damon 13.0 Plt Count 290 Immature Gran % (Auto) 1.1 Neut % (Auto) 92.0 H Lymph % (Auto) 5.4 L [place] % (Auto) 1.4 Eos % (Auto) 0.0 Baso % (Auto) 0.1 Neut # (Auto) 12.5 H Lymph # (Auto) 0.7 [place] # (Auto) 0.2 L Eos # (Auto) 0.0 Baso # (Auto) 0.0 Immature Gran # (Auto) 0.2 Sodium 138.1 Potassium 3.98 Chloride 107.6 H Carbon Dioxide 27.5 Anion Gap 6.98 BUN 19.6 H Creatinine 0.72 Estimated GFR (MDRD) 82.00 BUN/Creatinine Ratio 27.22 Glucose 133.5 H Calcium 9.21 Total Bilirubin 0.21 AST 19.7 ALT 11.3 Alkaline Phosphatase 59.4 Total Protein 6.83 Albumin 3.83 Globulin 3.00 Albumin/Globulin Ratio 1.27 Additional Comments Additional Comments: I have independently reviewed and interpreted the labs/EKGs/imaging ordered during this hospital stay. I have reviewed outside records that are available in our EMR that pertain to medical stay including imaging/notes/labs from previous visits. Active Medications Active Medications: Medications Generic Name Dose Route Start Last Admin Trade Name Freq PRN Reason Stop Dose Admin Acetaminophen 650 mg 07/12/23 11:54 Acetaminophen 325 Mg Tablet PO Q4H PRN Mild Pain Amlodipine Besylate 5 mg 07/12/23 12:30 07/13/23 08:56 Amlodipine Besylate 5 Mg Tablet PO 5 mg BID PATTI Administration Diphenhydramine HCl 25 mg 07/12/23 11:54 Diphenhydramine Hcl 25 Mg Capsule PO Q6H PRN Allergy Symptoms Enoxaparin Sodium 40 mg 07/13/23 09:00 07/13/23 08:57 Enoxaparin Sodium 40 Mg/0.4 Ml Syr SUBCUT 40 mg DAILY PATTI Administration Escitalopram Oxalate 20 mg 07/12/23 12:30 07/13/23 08:56 Escitalopram Oxalate 10 Mg Tablet PO 20 mg DAILY PATTI Administration Famotidine 20 mg 07/12/23 21:00 07/13/23 08:56 Famotidine Inj 20 Mg/2 Ml Vial IVP 20 mg Q12HR PATTI Administration Doxycycline Hyclate 100 mg/ 100 mls @ 50 mls/hr 07/12/23 12:00 07/13/23 08:56 Sodium Chloride IV 07/13/23 11:00 50 mls/hr Q12HR PATTI Administration Doxycycline Hyclate 100 mg/ 100 mls @ 50 mls/hr 11/01/23 21:00 Sodium Chloride IV 07/16/23 20:59 Q12HR PATTI Methylprednisolone Sodium Succinate 40 mg 07/12/23 13:00 07/13/23 05:37 Methylprednisolone Sod Succ/Pf 40 Mg/Ml Vial IVP 40 mg Q8HR PATTI Administration Metoprolol Tartrate 50 mg 07/12/23 12:30 07/13/23 08:56 Metoprolol Tartrate 50 Mg Tablet PO 50 mg DAILY PATTI Administration Sodium Chloride 1 syr 07/12/23 21:00 07/13/23 05:37 0.9% Sodium Chloride 10 Ml Disp.Syrin IVF 1 syr Q8HR PATTI Administration Plan Plan: 1. Acute hypoxic respiratory failure - Improved. Off of bipap. Wean O2 when able. Solumedrol, pepcid, doxycycline. Will avoid nebs for now since she seems to have had a reaction in ER. Benadryl prn ordered. 2. Acute COPD exacerbation - Plan as above. Consider outpatient PFTs for formal diagnosis. Chronic smoker. Repeat CXR today since she could've aspirated while vomiting yesterday. Imaging yesterday neg for pna. 3. Hypertension - Chronic, stable DVT: Lovenox Dispo: Wean O2 today. Ambulate. Likely dc tomorrow. Review Statement Review Statement: I have personally discussed and reviewed the patient's visit/currently labs/imaging/decision making with Dr. Corona, my supervising attending. Greater that 50 minutes spent with patient, 50% of the time spent with this david ent was devoted to counseling and coordination of care.
--- NOTE | 2023-07-13 13:47 | DI ---
EXAM: CHEST RADIOGRAPH TECHNIQUE: Two views. Frontal and lateral. HISTORY: Possible aspiration COMPARISON: 07/12/2023 FINDINGS: The lungs are clear. The heart size is normal. Osseous structures are unremarkable IMPRESSION: 1. Normal Exam.
[2023-07-14] MEDS: SOLU-MEDROL 40 MG IVP SCH (05:21)
[2023-07-14 05:24] LABS: BASOPHILS % (AUTO) 0.1 % (0.0-3.0); HEMATOCRIT 35.8 % (37.0-47.0); HEMOGLOBIN 11.6 g/dl (12.0-16.0); IMMATURE GRANULOCYTE # (AUTO) 0.1 (0.0-1.0); IMMATURE GRANULOCYTE % (AUTO) 0.9 % (0.0-5.0); LYMPHOCYTES # (AUTO) 0.7 K/uL (0.60-3.4); LYMPHOCYTES % (AUTO) 4.7 (10.0-50.0); MEAN CORPUSCULAR HEMOGLOBIN 31.8 pg (27.0-31.0); MEAN CORPUSCULAR HGB CONC 32.4 (31.8-35.4); MEAN CORPUSCULAR VOLUME 98.1 fl (81.0-99.0); MONOCYTES # (AUTO) 0.2 K/uL (0.4-2.0); MONOCYTES % (AUTO) 1.4 (0-10); NEUTROPHILS # (AUTO) 13.6 K/ul (2.0-6.9); NEUTROPHILS % (AUTO) 92.9 % (42.2-75.2); PLATELET COUNT 333 10^3/uL (140-440); RDW COEFFICIENT OF VARIATION 13.2 % (11.6-14.8); RED BLOOD COUNT 3.65 10^6/ul (4.20-5.40); WHITE BLOOD COUNT 14.67 K/ul (4.6-10.2)
[2023-07-14 05:46] LABS: ALANINE AMINOTRANSFERASE 19.1 U/L (0-35); ALBUMIN 4.05 g/dL (3.5-5.0); ALKALINE PHOSPHATASE 60.2 U/L (53-141); ASPARTATE AMINO TRANSFERASE 25.8 U/L (14-36); BILIRUBIN,TOTAL 0.25 mg/dL (0.2-1.3); BLOOD UREA NITROGEN 20.4 mg/dL (7-17); CALCIUM 9.41 mg/dL (8.4-10.2); CARBON DIOXIDE 28.3 mmol/L (22-30.0); CHLORIDE 107.2 mmol/L (98-107); CREATININE 0.8 mg/dL (0.60-1.30); GLUCOSE 148.3 mg/dL (74-106); POTASSIUM 3.93 mmol/L (3.5-5.1); SODIUM 139.2 mmol/L (134.5-145); TOTAL PROTEIN 7.15 g/dL (6.3-8.2)
[2023-07-14] MEDS: PEPCID IVP SCH (08:19)
[2023-07-14] MEDS: NORVASC PO SCH (08:19)
[2023-07-14] MEDS: DOXY-100 100 MG in SODIUM CHLORIDE 100ML 100 ML IV SCH (08:19)
[2023-07-14] MEDS: LEXAPRO PO SCH (08:19)
[2023-07-14] MEDS: LOVENOX SUBCUT SCH (08:20)
--- NOTE | 2023-07-14 08:52 | DCSUM ---
Admission Date Admission Date: 07/12/23 Discharge Date Discharge Date: 07/14/23 Admission Diagnosis Admission Diagnosis: 1. Acute hypoxic respiratory failure 2. Acute COPD exacerbation Discharge Diagnosis Discharge Diagnosis: 1. Acute hypoxic respiratory failure - Resolved 2. Acute COPD exacerbation - Improved 3. Hypertension - Chronic, stable 4. Right lung nodule Hospital Provider Hospital Provider: LESLEY EDUARDO PA-C, [facility] Primary Care Physician Primary Care Physician: INOCENCIA CORONA MD Summary of History and Physical Summary of History and Physical: Patient is a 62 year old female with pmhx of hypertension who presented to ER with sob. 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 Then she felt significant SOB to where she couldn't walk a few steps. She states she has had URI symptoms for last couple weeks. No formal diagnosis of COPD. Doesn't use inhalers at home. She is a long time smoker. In ER she was found to be hypoxic 84-87%. She was given duonebs. She became very red, tongue went numb, then became itchy. Her breathing became labored. She was placed on bipap to help with her work of breathing. They tried just an albuterol neb but she had the same reaction. She was given epi, solumedrol, pepcid, and benadryl. She is now off bipap, only on 2L, and breathing is nonlabored/much improved. CXR and CTA chest negative for acute findings. Hospital Course Subjective: Patient was treated with steroids and doxycycline. Repeat CXR still negative. She was weaned to O2. On the following day of admission she was wheezy and still sob. On day of discharge lung sounds were much improved. She was on RA. She had a 3 step and did well, no home O2 needed. She felt comfortable with discharge to home. She has a hair apt she'd really like to get to today. She has not had any other n/v/d, tongue numbness, redness, or itching. Discussed with her if she has any other episodes of this she will need to further investigate for an environmental exposure to an allergen, but at this time unsure of what triggered her symptoms. Consider outpatient PFT. She was made aware of the lung nodule noted on CT, recommend repeat ct in 6 months. She agrees to plan of care. Appearance: Pleasant, No Apparent Distress, Alert and Well-appearing HEENT: MMM and Supple CVS: No Murmur Abdomen: Soft, Non-Tender and No Distention Respiratory: Other (+wheezing much improved) Extremities: No Edema Vital Signs: Most Recent Vital Signs Temperature 97.5 F L 07/14/23 05:33 Temperature Source Temporal Artery Scan 07/14/23 05:33 Temperature Source Oral 07/12/23 06:00 Pulse Rate 80 07/14/23 05:33 Respiratory Rate 18 07/14/23 05:33 Blood Pressure 155/86 H 07/14/23 05:33 Blood Pressure Mean 109 07/14/23 05:33 Blood Pressure Left Arm 148/87 07/12/23 10:40 Blood Pressure Location Left Arm 07/14/23 05:33 Blood Pressure Position Supine 07/14/23 05:33 O2 Sat by Pulse Oximetry 90 L 07/14/23 05:33 Oxygen Delivery Method Room Air 07/14/23 05:33 Oxygen Flow Rate 2 07/13/23 09:42 Fraction of Inspired Oxygen (FIO2) 30 07/12/23 07:07 Height 5 ft 7 in 07/12/23 10:40 Weight 197 lb 8 oz 07/12/23 10:40 Telemetry Type Remote Telemetry 07/14/23 07:00 Telemetry Monitoring Continues 07/14/23 07:00 Telemetry Heart Rate 57 L 07/14/23 07:00 Telemetry SPO2 94 07/12/23 19:00 EKG [place] Interval 0.13 07/14/23 07:00 EKG QRS Interval 0.06 07/14/23 07:00 Telemetry Strip Reading SB/SR 07/14/23 07:00 Imaging: EXAM: CHEST RADIOGRAPH TECHNIQUE: Single frontal chest radiograph. HISTORY: Shortness of breath. COMPARISON: 07/19/2016 FINDINGS: EKG leads and oxygen tubing project over the chest. No pulmonary infiltrate is identified. No pleural effusion or pneumothorax is seen. Borderline cardiomegaly. No acute displaced rib fractures are identified. IMPRESSION: 1. No acute findings in the chest. EXAM: CTA CHEST FOR PE HISTORY: Acute dyspnea COMPARISON: None TECHNIQUE: CTA of the chest was performed from the lung apices to the upper abdomen after 100 ml of Omnipaque IV contrast was administered using PE protocol. 3-D imaging was also provided. FINDINGS: There is no filling defect in the pulmonary arteries to the level of the subsegmental pulmonary arteries. The heart is normal without signs of ventricular strain. There is mild calcific atherosclerotic disease. There is no pericardial fluid. There are nonenlarged mediastinal and hilar lymph nodes. Thyroid is normal. There is no pneumothorax or effusion. There is calcified granuloma in the superior segment of the right lower lobe. There is a right apical nodule measuring 0.5 cm. The airways are patent. Limited views of the soft tissues in the upper abdomen are normal. Gallbladder is been resected. There is a right renal cyst present. The osseous structures demonstrate degenerative disease. IMPRESSION: 1. No acute cardiopulmonary process or consolidation. 2. Pleural-based 0.5 cm nodule in the posterior right lung apex. Follow-up CT in 6 months. 3. Cholecystectomy and right renal cyst. EXAM: CHEST RADIOGRAPH TECHNIQUE: Two views. Frontal and lateral. HISTORY: Possible aspiration COMPARISON: 07/12/2023 FINDINGS: The lungs are clear. The heart size is normal. Osseous structures are unremarkable IMPRESSION: 1. Normal Exam. Lab Results Last 24 Hours: 07/14/23 04:50 WBC 14.67 H RBC 3.65 L Hgb 11.6 L Hct 35.8 L MCV 98.1 MCH 31.8 H MCHC 32.4 RDW Coeff of Damon 13.2 Plt Count 333 Immature Gran % (Auto) 0.9 Neut % (Auto) 92.9 H Lymph % (Auto) 4.7 L Nye % (Auto) 1.4 Eos % (Auto) 0.0 Baso % (Auto) 0.1 Neut # (Auto) 13.6 H Lymph # (Auto) 0.7 Nye # (Auto) 0.2 L Eos # (Auto) 0.0 Baso # (Auto) 0.0 Immature Gran # (Auto) 0.1 Sodium 139.2 Potassium 3.93 Chloride 107.2 H Carbon Dioxide 28.3 Anion Gap 7.63 BUN 20.4 H Creatinine 0.80 Estimated GFR (MDRD) 73.00 BUN/Creatinine Ratio 25.50 Glucose 148.3 H Calcium 9.41 Total Bilirubin 0.25 AST 25.8 ALT 19.1 Alkaline Phosphatase 60.2 Total Protein 7.15 Albumin 4.05 Globulin 3.10 Albumin/Globulin Ratio 1.30 Discharge Instructions Discharge Planning: Discharge Planning > [address] Radha Corona. Discharge Medications: Medications at Discharge (Home Meds & RX) amlodipine 5 mg tablet (Norvasc) 5 mg PO BID #180 tabs 01/13/23 cholecalciferol (vitamin D3) 25 mcg (1,000 unit) capsule 25 mcg PO QDAY 01/13/23 escitalopram oxalate 20 mg tablet 20 mg PO QDAY #90 tabs 01/13/23 magnesium oxide 500 mg tablet 500 mg PO QDAY #90 tabs 01/13/23 doxycycline monohydrate 100 mg capsule 100 mg PO BID 5 days #10 caps 07/14/23 metoprolol succinate 50 mg tablet,extended release 24 hr 50 mg PO DAILY 07/14/23 prednisone 20 mg tablet 20 mg PO BID 5 days #10 tabs 07/14/23 Discharge Plan Discharge Discharge Orders: Discharge Patient (ONCE); Ordered 07/14/23 Ordered By: LESLEY EDUARDO Activity Restrictions/Additional Instructions: DISCHARGE TO HOME DX: ACUTE RESPIRATORY FAILURE, COPD EXACERBATION DIET: HEART HEALTHY ACTIVITY: TOLERATED F/U WITH PCP SCHEDULED PHARMACY: [facility] RECOMMEND OUTPATIENT PFT YOU HAVE AN APPOINTMENT WITH DR. CORONA/JESSICA LOWERY NP/VISHAL GOLDMAN NP ON 07/31/23 AT 8AM. THE PHONE NUMBER TO THE OFFICE IS [phone] IF YOU NEED TO RESCHEDULE. THE ADDRESS IS: [address] [place] [address]. Care Plan Goals: Problem: Impaired Respiratory Status Goal: Exhibit optimal respiratory function Instructions: Activities as tolerated Apply oxygen as ordered Elevate head of bed Notify MD of increased congestion Patient Disposition: HOME SELF-CARE Prescriptions: New doxycycline monohydrate 100 mg capsule 100 mg PO BID 5 Days Qty: 10 0RF prednisone 20 mg tablet 20 mg PO BID 5 Days Qty: 10 0RF Continued metoprolol succinate 50 mg tablet extended release 24 hr 50 mg PO DAILY cholecalciferol (vitamin D3) 25 mcg (1,000 unit) capsule 25 mcg PO QDAY amlodipine [Norvasc] 5 mg tablet 5 mg PO BID Qty: 180 1RF escitalopram oxalate 20 mg tablet 20 mg PO QDAY Qty: 90 1RF magnesium oxide 500 mg tablet 500 mg PO QDAY Qty: 90 1RF Did you review [place] [employer] for ALL controlled substances?: Not Applicable Discussed opioids are addictive and Narcan is available by prescription or from pharmacy.: No Condition: Stable
[2023-07-14] MEDS ORDERED: TOPROL XL PO SCH (09:00)
[2023-07-14 10:01] VITALS: BP 144/75; PULSE 56; RESP 19; TEMP 98
== END 2023-07-14 11:57 | disposition home or self-care (01) | DRG 189 ==
LOC: MEDSURG B 05:54 → ED 05:54 → OBSVTOIN 08:24 → MEDSURG B 10:39
PROVIDERS: ADMIT Physician Assistant; ATTEND Physician Assistant